=== PATIENT | male | born 1955 | race Asian ===

== ENCOUNTER 2020-02-27 07:55 | Emergency (ER) | payer MEDICARE, OTHER ==
[~2020-02-27] VITALS: Ht 162.6 cm; Wt 77.3 kg
[~2020-02-27 07:55] MED LIST: NOCURR
[2020-02-27] MEDS ORDERED: SODIUM CHLORIDE 0.9% 1,000 ML IV ONE ×2 (08:15→11:15)
[2020-02-27 08:25] LABS: MEAN CORPUSCULAR HEMOGLOBIN 17.4 pg (26.0-34.0); MEAN CORPUSCULAR HGB CONC 31.5 G/dL (31.0-37.0); MEAN CORPUSCULAR VOLUME 55 fL (80-100)
[2020-02-27 08:31] LABS: HEMATOCRIT 38.6 % (41-53); HEMOGLOBIN 12.2 g/dL (13.5-17.5); PLATELET COUNT (AUTO) 178 K/uL (150-450); RED BLOOD CELL COUNT(AUTO) 7.02 MIL/uL (4.50-5.90)
[2020-02-27 08:39] LABS: CALCIUM, TOTAL 9.1 mg/dL (8.8-10.5); CREATININE 1.38 mg/dL (0.60-1.30); POTASSIUM 3.5 mmol/L (3.5-5.1)
[2020-02-27] MEDS ORDERED: TELM40 PO (08:43)
[2020-02-27] MEDS ORDERED: AMLO-258 PO (08:43)
[2020-02-27] MEDS ORDERED: ALFU10TA30 PO (08:43)
[2020-02-27 08:52] LABS: BAND NEUTROPHILS % (MANUAL) 2 % (0-5); BASOPHILS % (MANUAL) 1 % (0-2); EOSINOPHILS % (MANUAL) 2 % (1-6); LYMPHOCYTES % (MANUAL) 22 % (22-44); MONOCYTES % (MANUAL) 9 % (2-9); SEGMENTED NEUTROPHILS % 64 % (40-70)
[2020-02-27 08:55] LABS: APPEARANCE,URINE CLEAR (CLEAR); BILIRUBIN,URINE NEGATIVE (NEGATIVE); GLUCOSE, URINE (UA) NEGATIVE (NEGATIVE); KETONES,URINE NEGATIVE (NEGATIVE); LEUKOCYTE ESTERASE ,URINE TRACE (NEGATIVE); NITRATE,URINE NEGATIVE (NEGATIVE); OCCULT BLOOD,URINE NEGATIVE (NEGATIVE); PH,URINE 6.5 (5.0-8.0); PROTEIN,URINE NEGATIVE (NEGATIVE); UROBILINOGEN,URINE 0.2 mg/dL (<=1.0)
[2020-02-27 09:00] LABS: ALBUMIN 3.8 g/dL (3.4-5.0); BILIRUBIN,TOTAL 1.1 mg/dL (0.1-1.0); MAGNESIUM 1.9 mg/dL (1.80-2.40); TOTAL PROTEIN, SERUM 7.6 g/dL (6.4-8.2)
[2020-02-27 09:00] LABS: AMPHET/METH SCREEN,URINE NEGATIVE (NEGATIVE); BARBITURATE SCREEN, URINE NEGATIVE (NEGATIVE); BENZODIAZEPINES SCREEN,URINE NEGATIVE (NEGATIVE); CANNABINOID SCREEN,URINE NEGATIVE (NEGATIVE); COCAINE SCREEN,URINE NEGATIVE (NEGATIVE); METHADONE SCREEN, URINE NEGATIVE (NEGATIVE); OPIATE SCREEN,URINE NEGATIVE (NEGATIVE)
[2020-02-27 09:06] LABS: PHENCYCLIDINE SCREEN,URINE NEGATIVE (NEGATIVE)
[2020-02-27 09:09] LABS: BACTERIA,URINE None Seen /HPF (None Seen); RBC,URINE None Seen /HPF (0-2); WBC,URINE 0-2 /HPF (0-5)
[2020-02-27] MEDS ORDERED: ONDANSETRON HCL 4 MG/2 ML VIAL IVP ONE (11:15)
[2020-02-27] MEDS ORDERED: LORazepam 2 MG/ML VIAL IVP ONE (12:15)
[2020-02-27 13:38] VITALS: BP 135/78
== END 2020-02-27 13:48 | disposition home or self-care (01) ==
LOC: EMS 07:55
DX: E86.0 Dehydration (principal); N17.9 Acute kidney failure, unspecified; I95.1 Orthostatic hypotension; I10 Essential (primary) hypertension; F17.210 Nicotine dependence, cigarettes, uncomplicated; Z90.89 Acquired absence of other organs; Z79.899 Other long term (current) drug therapy
CPT/HCPCS: 36415; 70450; 71045; 80053; 80307; 81001; 82550; 83735; 83880; 84484; 85025; 93005; 96361; 96374; 96375; 99285; J2060; J2405; J7030

== ENCOUNTER 2021-05-13 08:20 | Emergency (ER) | payer MEDICARE, OTHER ==
[~2021-05-13] VITALS: Ht 170.2 cm; Wt 68.2 kg
[~2021-05-13 08:20] MED LIST changes: +ALFU10TA30 PO; +AMLO-258 PO; -NOCURR; +TELM40 PO
[2021-05-13] MEDS ORDERED: LORazepam 2 MG/ML VIAL IVP ONE (09:00)
[2021-05-13 09:45] LABS: ANION GAP 11 mmol/L (8-16); CALCIUM, TOTAL 8.3 mg/dL (8.8-10.5); CARBON DIOXIDE 26 mmol/L (22-29); CHLORIDE 106 mmol/L (98-107); CREATININE 1.06 mg/dL (0.60-1.30); GLOMERULAR FILTR. RATE CALC > 60 mL/min (>60); GLUCOSE,RANDOM 122 mg/dL (70-110); HEMATOCRIT 40.5 % (41-53); HEMOGLOBIN 12.7 g/dL (13.5-17.5); MEAN CORPUSCULAR HEMOGLOBIN 17.3 pg (26.0-34.0); MEAN CORPUSCULAR HGB CONC 31.4 G/dL (31.0-37.0); MEAN CORPUSCULAR VOLUME 55 fL (80-100); PLATELET COUNT (AUTO) 184 K/uL (150-450); POTASSIUM 3.8 mmol/L (3.5-5.1); RED BLOOD CELL COUNT(AUTO) 7.33 MIL/uL (4.50-5.90); RED CELL DISTRIBUTION WIDTH 18.6 % (11.5-14.5); SODIUM SERUM 143 mmol/L (136-145); UREA NITROGEN, BLOOD 12 mg/dL (7-18)
[2021-05-13 09:50] LABS: ALANINE AMINOTRANSFERASE 132 U/L (12-78); ALBUMIN 3.7 g/dL (3.4-5.0); ALKALINE PHOSPHATASE 197 U/L (46-116); ASPARTATE AMINOTRANSFERASE 49 U/L (15-37); BILIRUBIN,TOTAL 0.7 mg/dL (0.1-1.0); TOTAL PROTEIN, SERUM 7.7 g/dL (6.4-8.2)
[2021-05-13 10:13] LABS: BAND NEUTROPHILS % (MANUAL) 2 % (0-5); EOSINOPHILS % (MANUAL) 1 % (1-6); LYMPHOCYTES % (MANUAL) 26 % (22-44); MONOCYTES % (MANUAL) 7 % (2-9); SEGMENTED NEUTROPHILS % 64 % (40-70)
[2021-05-13 10:45] VITALS: BP 130/72
== END 2021-05-13 10:46 | disposition home or self-care (01) ==
LOC: EMS 08:20
DX: F41.9 Anxiety disorder, unspecified (principal); G47.00 Insomnia, unspecified; F17.210 Nicotine dependence, cigarettes, uncomplicated; I10 Essential (primary) hypertension
CPT/HCPCS: 36415; 80053; 84484; 85025; 93005; 96374; 99284; J2060

== ENCOUNTER 2021-08-14 19:13 | Emergency (ER) | payer MEDICARE, OTHER ==
[~2021-08-14] VITALS: Ht 162.6 cm; Wt 77.3 kg
[2021-08-14] MEDS ORDERED: IBUPROFEN 800 MG TABLET PO ONE (19:45)
[2021-08-14 19:58] LABS: BASOPHILS % (AUTO) 0.9 % (0.0-2.0); EOSINOPHILS % (AUTO) 1.7 % (1.0-6.0); HEMOGLOBIN 12.3 g/dL (13.5-17.5); LYMPHOCYTES # (AUTO) 2.8 K/uL (1.0-4.8); LYMPHOCYTES % (AUTO) 40.8 % (22.0-44.0); MEAN CORPUSCULAR HEMOGLOBIN 16.8 pg (26.0-34.0); MEAN CORPUSCULAR HGB CONC 31.6 G/dL (31.0-37.0); MEAN CORPUSCULAR VOLUME 53 fL (80-100); MONOCYTES # (AUTO) 0.7 K/uL (0.1-1.0); MONOCYTES % (AUTO) 9.6 % (2.0-9.0); NEUTROPHILS # (AUTO) 3.2 K/uL (1.8-7.7); RED BLOOD CELL COUNT(AUTO) 7.31 MIL/uL (4.50-5.90); RED CELL DISTRIBUTION WIDTH 18.4 % (11.5-14.5)
[2021-08-14 19:59] LABS: ANION GAP 7 mmol/L (8-16); CARBON DIOXIDE 29 mmol/L (22-29); CHLORIDE 102 mmol/L (98-107); CREATININE 1.04 mg/dL (0.60-1.30); GLUCOSE,RANDOM 126 mg/dL (70-110); POTASSIUM 3.8 mmol/L (3.5-5.1); SODIUM SERUM 138 mmol/L (136-145); UREA NITROGEN, BLOOD 16 mg/dL (7-18)
[2021-08-14 20:00] LABS: CALCIUM, TOTAL 8.9 mg/dL (8.8-10.5); GLOMERULAR FILTR. RATE CALC > 60 mL/min (>60); PLATELET COUNT (AUTO) 166 K/uL (150-450)
[2021-08-14 20:05] LABS: ALANINE AMINOTRANSFERASE 141 U/L (12-78); ALBUMIN 3.8 g/dL (3.4-5.0); ALKALINE PHOSPHATASE 311 U/L (46-116); ASPARTATE AMINOTRANSFERASE 59 U/L (15-37); BILIRUBIN,TOTAL 0.7 mg/dL (0.1-1.0); TOTAL PROTEIN, SERUM 8.1 g/dL (6.4-8.2)
[2021-08-14 20:15] LABS: URIC ACID 7.9 mg/dL (2.6-7.2)
[2021-08-14] MEDS ORDERED: COLC0.6T73 PO (21:13)
[2021-08-14] MEDS ORDERED: COLCHICINE 0.6 MG TABLET PO ONE (21:15)
[2021-08-14 21:27] VITALS: BP 150/90
== END 2021-08-14 21:55 | disposition home or self-care (01) ==
LOC: EMS 19:15
DX: M10.9 Gout, unspecified (principal); I10 Essential (primary) hypertension; F41.9 Anxiety disorder, unspecified; F17.210 Nicotine dependence, cigarettes, uncomplicated; Z90.89 Acquired absence of other organs
CPT/HCPCS: 80053; 84550; 85025; 93971; 99285

== ENCOUNTER 2021-11-16 11:16 | Emergency (ER) | payer MEDICARE, OTHER ==
[~2021-11-16] VITALS: Ht 170.2 cm; Wt 81.8 kg
[~2021-11-16 11:16] MED LIST changes: +COLC0.6T73 PO
[2021-11-16 12:40] VITALS: BP 152/100
[2021-11-16 13:13] LABS: BASOPHILS % (AUTO) 1.7 % (0.0-2.0); EOSINOPHILS % (AUTO) 2.4 % (1.0-6.0); HEMATOCRIT 39.3 % (41-53); HEMOGLOBIN 12.4 g/dL (13.5-17.5); LYMPHOCYTES # (AUTO) 1.7 K/uL (1.0-4.8); LYMPHOCYTES % (AUTO) 35.8 % (22.0-44.0); MEAN CORPUSCULAR HEMOGLOBIN 17.1 pg (26.0-34.0); MEAN CORPUSCULAR HGB CONC 31.6 G/dL (31.0-37.0); MEAN CORPUSCULAR VOLUME 54 fL (80-100); MONOCYTES # (AUTO) 0.4 K/uL (0.1-1.0); MONOCYTES % (AUTO) 7.5 % (2.0-9.0); NEUTROPHILS # (AUTO) 2.5 K/uL (1.8-7.7); NEUTROPHILS % (AUTO) 52.6 % (40.0-70.0); PLATELET COUNT (AUTO) 155 K/uL (150-450); RED BLOOD CELL COUNT(AUTO) 7.26 MIL/uL (4.50-5.90); RED CELL DISTRIBUTION WIDTH 18.4 % (11.5-14.5)
[2021-11-16 13:18] LABS: APPEARANCE,URINE CLEAR (CLEAR); BILIRUBIN,URINE NEGATIVE (NEGATIVE); GLUCOSE, URINE (UA) NEGATIVE (NEGATIVE); KETONES,URINE NEGATIVE (NEGATIVE); LEUKOCYTE ESTERASE ,URINE NEGATIVE (NEGATIVE); NITRATE,URINE NEGATIVE (NEGATIVE); OCCULT BLOOD,URINE NEGATIVE (NEGATIVE); PH,URINE 5.5 (5.0-8.0); PROTEIN,URINE NEGATIVE (NEGATIVE); SPECIFIC GRAVITIY, URINE 1.016 (1.003-1.030); UROBILINOGEN,URINE <=1.0 mg/dL (<=1.0)
[2021-11-16 13:20] LABS: ANION GAP 7 mmol/L (8-16); CALCIUM, TOTAL 8.9 mg/dL (8.8-10.5); CARBON DIOXIDE 28 mmol/L (22-29); CHLORIDE 104 mmol/L (98-107); CREATININE 0.99 mg/dL (0.60-1.30); GLOMERULAR FILTR. RATE CALC > 60 mL/min (>60); GLUCOSE,RANDOM 138 mg/dL (70-110); SODIUM SERUM 139 mmol/L (136-145); UREA NITROGEN, BLOOD 16 mg/dL (7-18)
[2021-11-16 13:26] LABS: ALANINE AMINOTRANSFERASE 139 U/L (12-78); ALBUMIN 3.8 g/dL (3.4-5.0); ALKALINE PHOSPHATASE 227 U/L (46-116); ASPARTATE AMINOTRANSFERASE 38 U/L (15-37); BILIRUBIN,TOTAL 0.9 mg/dL (0.1-1.0); TOTAL PROTEIN, SERUM 7.8 g/dL (6.4-8.2)
[2021-11-16] MEDS ORDERED: KETOROLAC TROMETHAMINE 30 MG/ML VIAL IM ONE (13:45)
== END 2021-11-16 14:03 | disposition home or self-care (01) ==
LOC: EMS 11:16
DX: R30.0 Dysuria (principal); F41.9 Anxiety disorder, unspecified; F17.210 Nicotine dependence, cigarettes, uncomplicated; I10 Essential (primary) hypertension; N40.0 Benign prostatic hyperplasia without lower urinary tract symptoms; Z90.49 Acquired absence of other specified parts of digestive tract
CPT/HCPCS: 36415; 80053; 81003; 85025; 96372; 99283; J1885

== ENCOUNTER 2022-07-04 12:18 | Emergency (ER) | payer MEDICARE, OTHER ==
[~2022-07-04] VITALS: Ht 160 cm; Wt 81.8 kg
[2022-07-04] MEDS ORDERED: ESCI-8 PO (12:23)
[2022-07-04 12:56] LABS: COVID AG,FIA SOURCE NASAL SWAB
[2022-07-04 13:20] LABS: INFLUENZA TYPE A NEGATIVE FOR TYPE A (NEGATIVE); INFLUENZA TYPE B NEGATIVE FOR TYPE B (NEGATIVE)
[2022-07-04] MEDS ORDERED: ACETAMINOPHEN 500 MG TABLET PO ONE (14:45)
[2022-07-04 15:26] VITALS: BP 121/76
[2022-07-04] MEDS ORDERED: BENZ-70 PO (17:55)
== END 2022-07-04 15:28 | disposition home or self-care (01) ==
LOC: EMS 14:05
DX: B34.9 Viral infection, unspecified (principal); F17.210 Nicotine dependence, cigarettes, uncomplicated; F41.9 Anxiety disorder, unspecified; I10 Essential (primary) hypertension; M10.9 Gout, unspecified; Z90.49 Acquired absence of other specified parts of digestive tract; Z20.822 Contact with and (suspected) exposure to COVID-19
CPT/HCPCS: 99284; 71046; 87426; 87804; U0003; C9803

== ENCOUNTER 2022-07-17 08:58 | Emergency (ER) | payer MEDICARE, OTHER ==
[~2022-07-17] VITALS: Ht 167.6 cm; Wt 81.8 kg
[~2022-07-17 08:58] MED LIST changes: +BENZ-227 PO; +ESCI-8 PO
[2022-07-17 10:38] LABS: COVID AG,FIA SOURCE NASOPHARYNGEAL
[2022-07-17 11:07] LABS: INFLUENZA TYPE A NEGATIVE FOR TYPE A (NEGATIVE); INFLUENZA TYPE B NEGATIVE FOR TYPE B (NEGATIVE)
[2022-07-17 12:48] VITALS: BP 141/89
== END 2022-07-17 12:49 | disposition home or self-care (01) ==
LOC: EMS 09:04
DX: B34.9 Viral infection, unspecified (principal); F41.9 Anxiety disorder, unspecified; I10 Essential (primary) hypertension; N40.0 Benign prostatic hyperplasia without lower urinary tract symptoms; F17.210 Nicotine dependence, cigarettes, uncomplicated; Z98.890 Other specified postprocedural states; Z90.49 Acquired absence of other specified parts of digestive tract; Z20.822 Contact with and (suspected) exposure to COVID-19
CPT/HCPCS: 87804; 99283

== ENCOUNTER 2022-08-24 08:47 | Emergency (ER) | payer MEDICARE, OTHER ==
[~2022-08-24] VITALS: Ht 162.6 cm; Wt 80.0 kg
[2022-08-24] MEDS ORDERED: ESCI5TAB16 PO (08:58)
[2022-08-24] MEDS ORDERED: LORA10TA7 PO (08:58)
[2022-08-24] MEDS ORDERED: AMOX500C2 PO (08:58)
[2022-08-24] MEDS ORDERED: ALFU10TA9 PO (08:58)
[2022-08-24] MEDS ORDERED: ATOR10TA69 PO (08:58)
[2022-08-24] MEDS ORDERED: CIPROFLOXACIN HCL 250 MG TABLET PO ONE (09:45)
[2022-08-24] MEDS ORDERED: ONDANSETRON HCL 4 MG/2 ML VIAL IVP ONE (09:45)
[2022-08-24] MEDS ORDERED: DIPHENOXYLATE/ATROP 2.5-0.025 MG TABLET PO ONE (09:45)
[2022-08-24] MEDS ORDERED: SODIUM CHLORIDE 0.9% 1,000 ML IV ONE (09:45)
[2022-08-24 10:13] LABS: ANION GAP 8 mmol/L (8-16); CALCIUM, TOTAL 8.5 mg/dL (8.8-10.5); CARBON DIOXIDE 27 mmol/L (22-29); CHLORIDE 99 mmol/L (98-107); CREATININE 1.04 mg/dL (0.60-1.30); GLOMERULAR FILTR. RATE CALC > 60 mL/min (>60); GLUCOSE,RANDOM 124 mg/dL (70-110); POTASSIUM 4.3 mmol/L (3.5-5.1); SODIUM SERUM 134 mmol/L (136-145); UREA NITROGEN, BLOOD 12 mg/dL (7-18)
[2022-08-24 10:14] LABS: BASOPHILS % (AUTO) 0.2 % (0.0-2.0); EOSINOPHILS % (AUTO) 0.7 % (1.0-6.0); HEMATOCRIT 40.2 % (41-53); HEMOGLOBIN 12.7 g/dL (13.5-17.5); LYMPHOCYTES # (AUTO) 0.7 K/uL (1.0-4.8); LYMPHOCYTES % (AUTO) 10.5 % (22.0-44.0); MEAN CORPUSCULAR HEMOGLOBIN 17.3 pg (26.0-34.0); MEAN CORPUSCULAR HGB CONC 31.6 G/dL (31.0-37.0); MEAN CORPUSCULAR VOLUME 55 fL (80-100); MONOCYTES # (AUTO) 0.6 K/uL (0.1-1.0); MONOCYTES % (AUTO) 8.8 % (2.0-9.0); NEUTROPHILS # (AUTO) 5.4 K/uL (1.8-7.7); NEUTROPHILS % (AUTO) 79.8 % (40.0-70.0); PLATELET COUNT (AUTO) 195 K/uL (150-450); RED BLOOD CELL COUNT(AUTO) 7.33 MIL/uL (4.50-5.90); RED CELL DISTRIBUTION WIDTH 18.6 % (11.5-14.5)
[2022-08-24 10:19] LABS: ALANINE AMINOTRANSFERASE 119 U/L (12-78); ALBUMIN 3.8 g/dL (3.4-5.0); ALKALINE PHOSPHATASE 241 U/L (46-116); ASPARTATE AMINOTRANSFERASE 65 U/L (15-37); BILIRUBIN,TOTAL 0.9 mg/dL (0.1-1.0); TOTAL PROTEIN, SERUM 7.7 g/dL (6.4-8.2)
[2022-08-24 12:28] LABS: COVID AG,FIA SOURCE NASAL SWAB
[2022-08-24 12:55] LABS: INFLUENZA TYPE A NEGATIVE FOR TYPE A (NEGATIVE); INFLUENZA TYPE B NEGATIVE FOR TYPE B (NEGATIVE)
[2022-08-24] MEDS ORDERED: ONDA-104 PO (13:36)
[2022-08-24] MEDS ORDERED: MAG HYDROX/AL HYDROX/SIMETH ES 30 ML SUSPENSION UDCUP PO ONE (13:45)
[2022-08-24 14:29] VITALS: BP 133/85
== END 2022-08-24 14:31 | disposition home or self-care (01) ==
LOC: EMS 09:09
DX: R11.10 Vomiting, unspecified (principal); R19.7 Diarrhea, unspecified; F41.9 Anxiety disorder, unspecified; E78.00 Pure hypercholesterolemia, unspecified; I10 Essential (primary) hypertension; N40.0 Benign prostatic hyperplasia without lower urinary tract symptoms; F17.210 Nicotine dependence, cigarettes, uncomplicated; Z90.49 Acquired absence of other specified parts of digestive tract; Z98.890 Other specified postprocedural states; Z88.8 Allergy status to other drugs, medicaments and biological substances; Z20.822 Contact with and (suspected) exposure to COVID-19
CPT/HCPCS: 99284; 96374; 96361; 87426; 80053; 85025; 87804; 36415; J2405; J7030

== ENCOUNTER 2023-04-20 21:34 | Emergency (ER) | payer MEDICARE, OTHER ==
[~2023-04-20] VITALS: Ht 165.1 cm; Wt 72.3 kg
[~2023-04-20 21:34] MED LIST changes: -ALFU10TA30 PO; +ALFU10TA9 PO; +AMOX500C2 PO; +ATOR10TA69 PO; -BENZ-227 PO; -COLC0.6T73 PO; -ESCI-8 PO; +ESCI5TAB16 PO; +LORA10TA7 PO; +ONDA-104 PO
[2023-04-20 22:01] VITALS: BP 138/95; PULSE 84; RESP 16; TEMP 98.2
[2023-04-21] MEDS ORDERED: HYDROCODONE/ACETAMINOPHEN 5-325 MG TABLET PO ONE (02:30)
[2023-04-21] MEDS ORDERED: MethylPREDNISolone SOD SUCC 125 MG/2 ML VIAL IVP ONE (02:30)
[2023-04-21] MEDS ORDERED: TRAM-559 PO (02:35)
[2023-04-21] MEDS ORDERED: COLC0.6T68 PO (02:35)
== END 2023-04-21 03:06 | disposition home or self-care (01) ==
LOC: EMS 21:35
DX: M10.061 Idiopathic gout, right knee (principal); F41.9 Anxiety disorder, unspecified; E78.00 Pure hypercholesterolemia, unspecified; I10 Essential (primary) hypertension; N40.0 Benign prostatic hyperplasia without lower urinary tract symptoms; F17.210 Nicotine dependence, cigarettes, uncomplicated; Z90.49 Acquired absence of other specified parts of digestive tract; Z98.890 Other specified postprocedural states; Z88.8 Allergy status to other drugs, medicaments and biological substances
CPT/HCPCS: 99283; 73562; 96374; J2930

== ENCOUNTER 2023-05-24 11:41 | Emergency (ER) | payer MEDICARE, OTHER ==
[~2023-05-24] VITALS: Ht 167.6 cm; Wt 79.5 kg
[~2023-05-24 11:41] MED LIST changes: +COLC0.6T68 PO; +TRAM-559 PO
[2023-05-24 11:46] VITALS: TEMP 98
[2023-05-24] MEDS ORDERED: ASPI-989 PO (11:50)
[2023-05-24] MEDS ORDERED: METO50 PO (11:50)
[2023-05-24] MEDS ORDERED: IBUP-45 PO (11:50)
[2023-05-24 11:54] VITALS: BP 146/88; PULSE 86; RESP 18
[2023-05-24] MEDS ORDERED: KETOROLAC TROMETHAMINE 30 MG/ML VIAL IM ONE (12:15)
[2023-05-25] MEDS ORDERED: OXYC5 PO (11:47)
[2023-05-25] MEDS ORDERED: COLC0.6T73 PO (11:47)
== END 2023-05-24 12:45 | disposition home or self-care (01) ==
LOC: EMS 12:23
DX: M25.531 Pain in right wrist (principal); F41.9 Anxiety disorder, unspecified; E78.00 Pure hypercholesterolemia, unspecified; I10 Essential (primary) hypertension; N40.0 Benign prostatic hyperplasia without lower urinary tract symptoms; F17.210 Nicotine dependence, cigarettes, uncomplicated; Z90.49 Acquired absence of other specified parts of digestive tract; Z98.890 Other specified postprocedural states; Z88.8 Allergy status to other drugs, medicaments and biological substances
CPT/HCPCS: 99283; 96372; J1885

== ENCOUNTER 2023-05-25 11:30 | Emergency (ER) | payer MEDICARE, OTHER ==
[~2023-05-25] VITALS: Ht 162.6 cm; Wt 79.5 kg
[~2023-05-25 11:30] MED LIST changes: -AMOX500C2 PO; +ASPI-989 PO; -ESCI5TAB16 PO; +IBUP-45 PO; -LORA10TA7 PO; +METO50 PO; -ONDA-104 PO; -TELM40 PO; -TRAM-559 PO
[2023-05-25 11:35] VITALS: BP 141/89; PULSE 91; RESP 17; TEMP 98.7
[2023-05-25] MEDS ORDERED: KETOROLAC TROMETHAMINE 30 MG/ML VIAL IM ONE (11:45)
[2023-05-25] MEDS ORDERED: OXYC5 PO (11:47)
[2023-05-25] MEDS ORDERED: COLC0.6T73 PO (11:47)
== END 2023-05-25 12:02 | disposition home or self-care (01) ==
LOC: EMS 11:41
DX: M25.531 Pain in right wrist (principal); F41.9 Anxiety disorder, unspecified; E78.00 Pure hypercholesterolemia, unspecified; I10 Essential (primary) hypertension; F17.210 Nicotine dependence, cigarettes, uncomplicated; N40.0 Benign prostatic hyperplasia without lower urinary tract symptoms; Z90.49 Acquired absence of other specified parts of digestive tract; Z98.890 Other specified postprocedural states; Z88.8 Allergy status to other drugs, medicaments and biological substances
CPT/HCPCS: 99283; 96372; J1885

== ENCOUNTER 2024-06-23 19:11 | Emergency (ER) | payer MEDICARE, OTHER ==
[~2024-06-23] VITALS: Ht 162.6 cm; Wt 79.5 kg
[~2024-06-23 19:11] MED LIST changes: +ALFU10TA47 PO; -ALFU10TA9 PO; -AMLO-258 PO; +ASPI-1450 PO; -ASPI-989 PO; +ATOR10TA PO; -ATOR10TA69 PO; +CIPR500T10 PO; -COLC0.6T68 PO; +METO25XL PO; -METO50 PO; +METR500 PO; +NIFE-141 PO; +OXYC5 PO
[2024-06-23 19:35] VITALS: TEMP 98.1
[2024-06-23 21:15] VITALS: BP 144/78; PULSE 97; RESP 17; O2SAT 99
[2024-06-23 21:46] LABS: COVID AG,FIA SOURCE NASAL SWAB
[2024-06-23 22:07] LABS: INFLUENZA TYPE A NEGATIVE FOR TYPE A (NEGATIVE); INFLUENZA TYPE B NEGATIVE FOR TYPE B (NEGATIVE); SARS-COV2 (COVID) ANTIGEN,FIA Negative (Negative)
[2024-06-23] MEDS: LIDOCAINE 2% VISCOUS 15 ML SOLUTION UDCUP PO ONE (22:37)
[2024-06-23] MEDS: ACETAMINOPHEN/CODEINE 300-30 MG TABLET PO ONE (22:38)
[2024-06-23] MEDS: CEPHALEXIN MONOHYDRATE 500 MG CAPSULE PO ONE (22:38)
[2024-06-23] MEDS ORDERED: ACET-2080 PO (22:48)
[2024-06-23] MEDS ORDERED: CEPH-558 PO (22:48)
[2024-06-24] MEDS ORDERED: MAG30ORA19 PO (15:21)
== END 2024-06-23 23:06 | disposition home or self-care (01) ==
LOC: EMS 19:11
DX: F41.9 Anxiety disorder, unspecified (principal); E78.00 Pure hypercholesterolemia, unspecified; I10 Essential (primary) hypertension; M10.9 Gout, unspecified; N40.0 Benign prostatic hyperplasia without lower urinary tract symptoms; F17.210 Nicotine dependence, cigarettes, uncomplicated; Z90.49 Acquired absence of other specified parts of digestive tract; Z79.899 Other long term (current) drug therapy; Z79.82 Long term (current) use of aspirin; Z20.822 Contact with and (suspected) exposure to COVID-19
CPT/HCPCS: 87430; 87804; 99284; Z7502; Z7610

== ENCOUNTER 2024-06-24 10:03 | Emergency (ER) | payer MEDICARE, OTHER ==
[~2024-06-24] VITALS: Ht 162.6 cm; Wt 79.5 kg
[~2024-06-24 10:03] MED LIST changes: +ACET-2080 PO; +CEPH-558 PO
[2024-06-24 10:30] VITALS: BP 101/65; PULSE 80; RESP 20; TEMP 98.7; O2SAT 99
[2024-06-24] MEDS: LIDOCAINE 2% VISCOUS 15 ML SOLUTION UDCUP PO ONE (12:27)
[2024-06-24] MEDS: MAG HYDROX/ALUMINUM HYD/SIMETH ES 30 ML SUSPENSION UDCUP PO ONE (12:27)
[2024-06-24] MEDS ORDERED: MAG30ORA19 PO (15:21)
== END 2024-06-24 15:55 | disposition home or self-care (01) ==
LOC: EMS 10:05
DX: R09.89 Other specified symptoms and signs involving the circulatory and respiratory systems (principal); I10 Essential (primary) hypertension; E78.00 Pure hypercholesterolemia, unspecified; F17.210 Nicotine dependence, cigarettes, uncomplicated; Z88.6 Allergy status to analgesic agent; Z90.49 Acquired absence of other specified parts of digestive tract; Z79.82 Long term (current) use of aspirin; Z79.899 Other long term (current) drug therapy
CPT/HCPCS: 71045; 99283; 99406

== ENCOUNTER 2024-10-26 00:10 | Emergency (ER) | payer MEDICARE, OTHER ==
[~2024-10-26] VITALS: Ht 162.6 cm; Wt 81.4 kg
[~2024-10-26 00:10] MED LIST changes: -CIPR500T10 PO; -IBUP-45 PO; +MAG30ORA19 PO
[2024-10-26 01:42] LABS: BASOPHILS % (AUTO) 1.3 % (0.0-2.0); EOSINOPHILS % (AUTO) 0.1 % (1.0-6.0); HEMATOCRIT 37.7 % (41-53); HEMOGLOBIN 11.9 g/dL (13.5-17.5); LYMPHOCYTES # (AUTO) 2.4 K/uL (1.0-4.8); LYMPHOCYTES % (AUTO) 26.1 % (22.0-44.0); MEAN CORPUSCULAR HGB CONC 31.5 G/dL (31.0-37.0); MEAN CORPUSCULAR VOLUME 54 fL (80-100); MONOCYTES # (AUTO) 0.8 K/uL (0.1-1.0); MONOCYTES % (AUTO) 8.8 % (2.0-9.0); NEUTROPHILS # (AUTO) 5.9 K/uL (1.8-7.7); NEUTROPHILS % (AUTO) 63.7 % (40.0-70.0); PLATELET COUNT (AUTO) 234 K/uL (150-450); RED BLOOD CELL COUNT(AUTO) 6.99 MIL/uL (4.50-5.90); RED CELL DISTRIBUTION WIDTH 18.7 % (11.5-14.5); WHITE BLOOD COUNT (AUTO) 9.2 K/uL (4.5-11.0)
[2024-10-26 01:56] LABS: ANION GAP 9 mmol/L (8-16); CALCIUM, TOTAL 9.2 mg/dL (8.8-10.5); CARBON DIOXIDE 28 mmol/L (22-29); CHLORIDE 100 mmol/L (98-107); CREATININE 0.96 mg/dL (0.60-1.30); GLOMERULAR FILTR. RATE CALC > 60 mL/min (>60); GLUCOSE,RANDOM 114 mg/dL (70-110); POTASSIUM 3.9 mmol/L (3.5-5.1); SODIUM SERUM 137 mmol/L (136-145); UREA NITROGEN, BLOOD 10 mg/dL (7-18)
[2024-10-26 02:04] LABS: TROPONIN I-HIGH SENSITIVITY 9 ng/L (<76); URIC ACID 4.7 mg/dL (2.6-7.2)
[2024-10-26] MEDS: HYDROmorphone HCL 2 MG/ML SYRINGE IM ONE (02:17)
[2024-10-26] MEDS: COLCHICINE 0.6 MG TABLET PO ONE (02:17)
[2024-10-26] MEDS: KETOROLAC TROMETHAMINE 60 MG/2 ML VIAL IM ONE (02:23)
[2024-10-26] MEDS: ONDANSETRON HCL 4 MG/2 ML VIAL IM ONE (02:23)
[2024-10-26] MEDS ORDERED: HYDR-4062 PO (02:57)
[2024-10-26] MEDS ORDERED: POLY119P3 PO (02:57)
[2024-10-26 03:07] VITALS: BP 141/86; PULSE 100; RESP 18; TEMP 98.3; O2SAT 98
== END 2024-10-26 03:15 | disposition home or self-care (01) ==
LOC: EMS 00:22
DX: M54.50 Low back pain, unspecified (principal); M10.9 Gout, unspecified; R60.1 Generalized edema; E78.00 Pure hypercholesterolemia, unspecified; I10 Essential (primary) hypertension; G89.29 Other chronic pain; M54.9 Dorsalgia, unspecified; F41.9 Anxiety disorder, unspecified; Z79.82 Long term (current) use of aspirin; Z79.899 Other long term (current) drug therapy; Z90.49 Acquired absence of other specified parts of digestive tract
CPT/HCPCS: 99284; 80048; 84484; 84550; 85025; 36415; 96372; J1885; J1171; J2405